=== PATIENT | male | born 1990 | race Two or more races ===

== ENCOUNTER 2025-01-06 01:22 | Emergency (ER) | payer OTHER ==
[~2025-01-06] VITALS: Ht 180.3 cm; Wt 90.7 kg
[2025-01-06] MEDS ORDERED: NIFEDIPINE 10 MG CAPSULE PO STA (03:14)
[2025-01-06] MEDS ORDERED: NIFEDIPINE ER30 M1 PO (05:17)
== END 2025-01-06 05:26 ==
LOC: ER
DX: I10 Essential (primary) hypertension (principal); Z88.8 Allergy status to other drugs, medicaments and biological substances